=== PATIENT | male | born 1980 | race Two or more races ===

== ENCOUNTER 2025-07-20 19:43 | Emergency (ER) | payer OTHER ==
[~2025-07-20] VITALS: Ht 175.3 cm; Wt 104.5 kg
[2025-07-20 20:45] VITALS: RESP 18; TEMP 98.1; O2SAT 98
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
--- NOTE | 2025-07-20 22:42 | DVH ---
CT BRAIN WITHOUT CONTRAST HISTORY: [facility] TECHNIQUE: Axial scans were obtained from the skull base through the vertex without contrast. Sagitta l and coronal reformats were generated. One or more of the following radiation dose reduction techniq ues were used for this examination: automated exposure control, adjustment of the mA and/or kV accord ing to patient size, use of iterative reconstruction technique. COMPARISON: CT CERVICAL WITHOUT CONTRAST on DOS: 07/20/25 Dose: CTDIvol: 59.99 mGy, DLP: 1081.52 mGy.cm FINDINGS: The cerebral parenchyma appears to be normal configuration and attenuation. The ventricles, cisterns , and sulci appear age-appropriate. There is no evidence for acute territorial infarct, hemorrhage, or mass effect. The orbits are normal. There is a fluid level within the left maxillary antrum. The visualized paran mariela sinuses and mastoid air cells are clear. The soft tissues and osseous structures appear within normal limits. IMPRESSION: 1. No acute traumatic intracranial abnormality identified. 2. Left maxillary sinus disease. 3. If clinical symptoms persist, MRI may be beneficial in further evaluation.
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
[2025-07-20 23:39] LABS: Hematocrit 43.4 % (41.0-53.0); Hemoglobin 15.0 g/dL (13.5-17.5); Mean Corpuscular Hemoglobin 31.0 pg (28.0-32.0); Mean Corpuscular Volume 89.7 fL (80.0-100.0); Nucleated Red Blood Cells % 0.0 %
[2025-07-21 00:04] LABS: Alanine Aminotransferase 24 U/L (7-40); Albumin 4.6 g/dL (3.2-4.8); Alkaline Phosphatase 101 U/L (46-116); Anion Gap 10 (5-15); BUN/Creatinine Ratio 20.0 (10.0-20.0); Blood Urea Nitrogen 22 mg/dL (9-23); Calcium 9.3 mg/dL (8.7-10.4); Carbon Dioxide 24 mmol/L (20-31); Glucose 100 mg/dL (74-106); Potassium 4.0 mmol/L (3.5-5.1); Sodium 142 mmol/L (136-145); Total Protein 7.9 g/dL (5.7-8.2)
[2025-07-21 00:05] LABS: Bilirubin, Total 1.1 mg/dL (0.2-1.0)
[2025-07-21 00:09] LABS: Chloride 108 mmol/L (98-107); Creatine Kinase IFCC 320 U/L (46-171)
[2025-07-21 00:53] LABS: Urine Protein, UAD Negative (Negative)
[2025-07-21 00:58] VITALS: BP 124/86; PULSE 83; RESP 18; O2SAT 98
[2025-07-21] MEDS: SODIUM CHLORIDE 0.9% 1,000 ML IV ONE (00:58)
[2025-07-21 01:45] LABS: Amphetamine Screen, Urine Neg (NEGATIVE); Barbiturate Scree,Urine Neg (NEGATIVE); Benzodiazephine Screen, Urine Neg (NEGATIVE); Cannabinoid Screen, Urine Neg (NEGATIVE); Cocaine Screen, Urine Neg (NEGATIVE); Opiate Scree,Urine Neg (NEGATIVE); Phencyclidine Screen, Urine Neg (NEGATIVE)
== END 2025-07-21 02:01 | disposition home or self-care (01) ==
LOC: ER 19:43 → EDBD 19:43 → ER 07-21 02:01
DX: S09.90XA Unspecified injury of head, initial encounter (principal); Z79.899 Other long term (current) drug therapy; X58.XXXA Exposure to other specified factors, initial encounter; Y93.89 Activity, other specified; Y92.410 Unspecified street and highway as the place of occurrence of the external cause; Y99.8 Other external cause status
CPT/HCPCS: 36415; 70450; 71250; 72125; 74176; 80053; 80307; 80320; 81001; 82550; 83605; 84484; 85025; 96360; 99284; J7030